=== PATIENT | female | born 1990 | race Caucasian/White ===

== ENCOUNTER 2016-11-19 15:01 | Emergency (ER) | payer OTHER ==
[~2016-11-19 15:01] MED LIST: ACET50TA PO; ANUS2.5C2 PR; CALCTAB22 OR; COLA50CA3 PO; IBUP80TA PO; PRENTAB8 PO; ZANTTAB9 PO
[2016-11-19 15:47] LABS: CONTROL LINE UCG INT CTR LINE PRESENT
[2016-11-19] MEDS ORDERED: KETOROLAC 30 MG/ML VIAL (J1885) As Ordered ONE (16:28)
[2016-11-19 16:57] LABS: ALBUMIN 4.1 GM/DL (3.2-5.2); ALBUMIN/GLOBULIN RATIO 1.41 (1.00-1.93); ALKALINE PHOSPHATASE 67 U/L (45-117); ALT/SGPT 16 U/L (12-78); ANION GAP 7 MEQ/L (8-16); AST/SGOT 14 U/L (15-37); BILIRUBIN,TOTAL 0.2 MG/DL (0.2-1.0); BLOOD UREA NITROGEN 11 MG/DL (7-18); CALCIUM LEVEL 8.5 MG/DL (8.5-10.1); CARBON DIOXIDE LEVEL 28 MEQ/L (21-32); CHLORIDE LEVEL 108 MEQ/L (98-107); CREATININE FOR GFR 0.73 MG/DL (0.55-1.02); GLOMERULAR FILTRATION RATE > 60.0 (>60); GLUCOSE, FASTING 107 MG/DL (70-105); SODIUM LEVEL 143 MEQ/L (136-145)
[2016-11-19 17:39] LABS: BASO # 0.1 K/mm3 (0.0-0.2); BASO % 1.4 % (0.0-1.0); EOS # 0.2 K/mm3 (0.0-0.50); EOS % 2.4 % (0.0-3.0); LARGE UNSTAINED CELL # 0.2 K/mm3 (0.0-0.4); LARGE UNSTAINED CELL % 2.3 % (0.0-4.0); LYMPH # 1.8 K/mm3 (1.5-6.5); LYMPH % 25.8 % (24.0-44.0); MEAN CORPUSCULAR HEMOGLOBIN 30.1 pg (27.0-33.0); MEAN CORPUSCULAR HGB CONC 34.5 g/dl (32.0-36.5); MEAN CORPUSCULAR VOLUME 87.4 fl (80.0-96.0); MONO # 0.4 K/mm3 (0.0-0.8); MONO % 6.7 % (0.0-5.0); NEUTROPHILS # 3.9 K/mm3 (1.8-7.7); NEUTROPHILS % 61.3 % (36.0-66.0); PLATELET COUNT, AUTOMATED 248 k/mm3 (150-450); RED CELL DISTRIBUTION WIDTH 12.8 % (11.5-14.5); WHITE BLOOD COUNT 6.4 K/mm3 (4.0-10.0)
--- NOTE | 2016-11-19 17:49 | EDDOCDS ---
Physician Documentation [facility] Name: Paradise Ridley Age: 26 yrs Sex: Female : 1990 Arrival Date: 11/19/2016 Time: 15:01 Bed Private MD: Meño Thomas Disposition: 11/19/16 17:37 Discharged to Home/Self Care. Impression: Other ovarian cysts. - Condition is Stable. - Discharge Instructions: Ovarian Cyst, [id number]. - Prescriptions for etodolac 200 mg Oral Capsule - take 1 capsule by ORAL route 3 times per day; 30 capsule. - Medication Reconciliation, Local Pharmacy Hours, Work Release Form - 2 day form. - Follow up: Ifrah Riddle MD; When: Call to arrange an appointment; Reason: Further diagnostic work-up, Recheck today's complaints, Continuance of care. - Problem is new. - Symptoms are unchanged. Historical: - Allergies: tramadol (Nausea); - Home Meds: 1. amitriptyline 75 mg Oral tab 1 tab nightly 2. baclofen 20mg three times a day 3. bupropion HCl 150 mg Oral TbER 1 tab 2 times per day 4. Effexor Oral 75 mg daily 5. Neurontin 600 mg Oral tab 1 tab 3 times per day 6. Seroquel 100 mg Oral tab 7. Macrobid 100 mg Oral cap every 12 hours - PMHx: Anxiety; Arthritis; DDD; Depression; Frequent UTI; Hypertension; restless leg syndrome; Sciatica; - PSHx: none; - Social history: Smoking status: Patient uses tobacco products, heavy tobacco smoker. No barriers to communication noted, The patient speaks fluent Frisian. - : The pt / caregiver states he / she is not on anticoagulants. Home medication list is obtained from the patient. - Exposure Risk Screening:: None identified. 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 9 in. (175.26 cm) (R); 17:33 BP 127 / 63; Pulse 83; Resp 18; Temp 98.6(TE); Pulse Ox 97% on R/A; Pain 8/10; ar3 15:02 Body Mass Index 23.63 (72.57 kg, 175.26 cm) dd6 MDM: 15:29 UA Ordered. EDMS 15:29 Urine Test-In Lab Ordered. EDMS 15:29 Urine Culture Ordered. EDMS 16:14 UA Reviewed. btw 16:14 Urine Test-In Lab Reviewed. btw 16:22 ketorolac 30 mg IM once ordered. btw 16:23 CBC with Diff Ordered. EDMS 16:23 Complete Comphrensive Metabolic Ordered. EDMS 16:24 -US Pelvic Non-Ob Complete Ordered. EDMS 16:24 DUPLEX SCAN LIMITED (DOPPLER)+US Ordered. EDMS 16:57 Transvaginal NON- US Ordered. EDMS 17:36 Complete Comphrensive Metabolic Reviewed. btw Administered Medications: 16:32 Drug: ketorolac 30 mg [ketorolac 30 mg/mL (1 mL) injection solution (1 mL)] Route: IM; jjr Site: left deltoid; Signatures: Dispatcher MedHost Dot Beatty RN RN jjr Nayeli Zuniga RN RN rs3 Erik Gregory PA PA btw MTDD
--- NOTE | 2016-11-19 17:49 | EDDOCDS ---
Nurse's Notes [facility] Name: Paradise Ridley Age: 26 yrs Sex: Female : 1990 Arrival Date: 11/19/2016 Time: 15:01 Bed PR Private MD: Meño Thomas Diagnosis: Other ovarian cysts Presentation: 11/19 15:17 Presenting complaint: Patient states: Was diagnosed with kidney infection on Sunday. rs3 taking Macrobid. still has lower back pain and blood in urine. Adult Sepsis Screening: The patient does not have new or worsening altered mentation. Patient's respiratory rate is less than 22. Systolic blood pressure is greater than 100. Patient has a qSOFA score of 0- Negative Sepsis Screen. Suicide/Homicide risk assessment- the patient denies having any suicidal and/or homicidal ideations and does not present with any other emotional, behavioral or mental health complaints. Status: Patient is not a financial services intern or dependent. Transition of care: patient was not received from another setting of care. 15:17 Acuity: CALLY Level 4 rs3 15:17 Method Of Arrival: Walkin/Carried/Asstd rs3 Triage Assessment: 15:21 General: Appears in no apparent distress. Pain: Location: lumbar area. Pt Declines HIV rs3 testing. 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 amitriptyline 75 mg Oral tab 1 tab nightly 2. baclofen 20mg three times a day 3. bupropion HCl 150 mg Oral TbER 1 tab 2 times per day 4. Effexor Oral 75 mg daily 5. Neurontin 600 mg Oral tab 1 tab 3 times per day 6. Seroquel 100 mg Oral tab 7. Macrobid 100 mg Oral cap every 12 hours - PMHx: Anxiety; Arthritis; DDD; Depression; Frequent UTI; Hypertension; restless leg syndrome; Sciatica; - PSHx: none; - Social history: Smoking status: Patient uses tobacco products, heavy tobacco smoker. No barriers to communication noted, The patient speaks fluent Sami. - : The pt / caregiver states he / she is not on anticoagulants. Home medication list is obtained from the patient. - Exposure Risk Screening:: None identified. Screenin:32 Screening information is obtained from the patient. Fall risk: No risks identified. jjr Assistance ADL's: requires no assistance with activities of daily living. Abuse/DV Screen: The patient / caregiver reports he/she is: not in a situation that causes fear, pain or injury. Nutritional screening: No deficits noted. Advance Directives: There is no active DNR order. home support is adequate. Assessment: 16:32 General: Appears in no apparent distress, well nourished, well groomed, Behavior is jjr appropriate for age. Pain: Location: right femoral area, left femoral area and suprapubic area. : Reports hematuria. 17:47 General: Appears in no apparent distress, reports GOSS. jjr Vital Signs: 15:02 BP 111 / 76; Pulse 87; Resp 18 S; Temp 97.4(O); Pulse Ox 99% on R/A; Weight 72.57 kg dd6 (R); Height 5 ft. 9 in. (175.26 cm) (R); 17:33 BP 127 / 63; Pulse 83; Resp 18; Temp 98.6(TE); Pulse Ox 97% on R/A; Pain 8/10; ar3 15:02 Body Mass Index 23.63 (72.57 kg, 175.26 cm) dd6 Vitals: 15:02 Log In Time: November 19, 2016 at 15:00. dd6 ED Course: 15:02 Patient visited by Brian Cuellar PCA. dd6 15:02 Meño Thomas is Private Physician. dd6 15:02 Patient moved to Waiting dd6 15:03 Patient moved to Pre RCE dd6 15:20 Triage Initiated rs3 15:30 Urine Culture Sent. ar3 15:30 Urine Test-In Lab Sent. ar3 15:30 UA Sent. ar3 16:05 Patient moved to Triage 2 ar3 16:13 Erik Gregory PA is PHCP. btw 16:13 Chelsie Crawford MD is Attending Physician. btw 16:13 Patient visited by Erik Gregory PA. btw 16:27 Complete Comphrensive Metabolic Sent. ar3 16:27 CBC with Diff Sent. ar3 16:30 Patient moved to Ultrasound en 16:31 Patient moved to TR1 kc3 16:32 The patient / caregiver is instructed regarding the plan of care and ED course. jjr 16:33 Patient visited by Dot Gillis RN. jjr 17:31 Patient moved to ar3 17:33 Patient visited by Nicki Clayton PCA. ar3 17:36 Ifrah Riddle MD is Referral Physician. btw 17:48 No IV's were initiated during this patient's visit. No procedures done that require jjr assistance. Administered Medications: 16:32 Drug: ketorolac 30 mg [ketorolac 30 mg/mL (1 mL) injection solution (1 mL)] Route: IM; jjr Site: left deltoid; Order Results: Lab Order: UA; SPEC'M 11/19/16 15:30 Test: APPEARANCE, URINE; Value: CLEAR; Range: CLEAR; Status: F Test: COLOR, URINE; Value: YELLOW; Range: YELLOW; Status: F Test: PH,URINE; Value: 6.0; Range: 5.0-9.0; Units: UNITS; Status: F Test: SPECIFIC GRAVITY URINE AUTO; Value: 1.013; Range: 1.002-1.035; Status: F Test: PROTEIN, URINE AUTO; Value: NEGATIVE; Range: NEGATIVE; Units: mg/dL; Status: F Test: GLUCOSE, URINE (UA) AUTO; Value: NEGATIVE; Range: NEGATIVE; Units: mg/dL; Status: F Test: KETONE, URINE AUTO; Value: NEGATIVE; Range: NEGATIVE; Units: mg/dL; Status: F Test: UROBILINOGEN, URINE AUTO; Value: 0.2; Range: 0.0-2.0; Units: mg/dL; Status: F Test: BILIRUBIN, URINE AUTO; Value: NEGATIVE; Range: NEGATIVE; Status: F Test: NITRITE, URINE AUTO; Value: NEGATIVE; Range: NEGATIVE; Status: F Test: LEUKOCYTE ESTERASE, URINE AUTO; Value: NEGATIVE; Range: NEGATIVE; Status: F Test: BLOOD, URINE BLOOD; Value: 3+; Range: NEGATIVE; Abnormal: Above high normal; Status: F Test: WBC, URINE AUTO; Value: 7; Range: 0-3; Abnormal: Above high normal; Units: /HPF; Status: F Test: RBC, URINE AUTO; Value: 183; Range: 0-3; Units: /HPF; Status: F Test: BACTERIA, URINE AUTO; Value: 1+; Range: NEGATIVE; Abnormal: Above high normal; Status: F Test: SQUAMOUS EPITHELIAL CELL UR AU; Value: 7; Range: 0-6; Units: /HPF; Status: F Test: MUCUS, URINE; Value: SMALL; Range: NEGATIVE; Status: F Test: HYALINE CAST, URINE AUTO; Value: 0; Range: 0-1; Units: /LPF; Status: F Lab Order: Urine Test-In Lab; SPEC'M 11/19/16 15:30 Test: URINE PREG TEST; Value: NEGATIVE; Range: NEGATIVE; Status: F Lab Order: CBC with Diff; SPEC'M 11/19/16 16:26 Test: WHITE BLOOD COUNT; Value: 6.4; Range: 4.0-10.0; Units: K/mm3; Status: F Test: RED BLOOD COUNT; Value: 4.15; Range: 4.00-5.40; Units: M/mm3; Status: F Test: HEMOGLOBIN; Value: 12.5; Range: 12.0-16.0; Units: g/dl; Status: F Test: HEMATOCRIT; Value: 36.2; Range: 36.0-47.0; Units: %; Status: F Test: MEAN CORPUSCULAR VOLUME; Value: 87.4; Range: 80.0-96.0; Units: fl; Status: F Test: MEAN CORPUSCULAR HEMOGLOBIN; Value: 30.1; Range: 27.0-33.0; Units: pg; Status: F Test: MEAN CORPUSCULAR HGB CONC; Value: 34.5; Range: 32.0-36.5; Units: g/dl; Status: F Test: RED CELL DISTRIBUTION WIDTH; Value: 12.8; Range: 11.5-14.5; Units: %; Status: F Test: PLATELET COUNT, AUTOMATED; Value: 248; Range: 150-450; Units: k/mm3; Status: F Test: NEUTROPHILS %; Value: 61.3; Range: 36.0-66.0; Units: %; Status: F Test: LYMPH %; Value: 25.8; Range: 24.0-44.0; Units: %; Status: F Test: MONO %; Value: 6.7; Range: 0.0-5.0; Abnormal: Above high normal; Units: %; Status: F Test: EOS %; Value: 2.4; Range: 0.0-3.0; Units: %; Status: F Test: BASO %; Value: 1.4; Range: 0.0-1.0; Abnormal: Above high normal; Units: %; Status: F Test: LARGE UNSTAINED CELL %; Value: 2.3; Range: 0.0-4.0; Units: %; Status: F Test: NEUTROPHILS #; Value: 3.9; Range: 1.8-7.7; Units: K/mm3; Status: F Test: LYMPH #; Value: 1.8; Range: 1.5-6.5; Units: K/mm3; Status: F Test: MONO #; Value: 0.4; Range: 0.0-0.8; Units: K/mm3; Status: F Test: EOS #; Value: 0.2; Range: 0.0-0.50; Units: K/mm3; Status: F Test: BASO #; Value: 0.1; Range: 0.0-0.2; Units: K/mm3; Status: F Test: LARGE UNSTAINED CELL #; Value: 0.2; Range: 0.0-0.4; Units: K/mm3; Status: F Lab Order: Complete Comphrensive Metabolic; SPEC'M 11/19/16 16:26 Test: GLUCOSE, FASTING; Value: 107; Range: 70-105; Abnormal: Above high normal; Units: MG/DL; Status: F Test: BLOOD UREA NITROGEN; Value: 11; Range: 7-18; Units: MG/DL; Status: F Test: CREATININE FOR GFR; Value: 0.73; Range: 0.55-1.02; Units: MG/DL; Status: F Test: GLOMERULAR FILTRATION RATE; Value: > 60.0; Range: >60; Status: F Test: SODIUM LEVEL; Value: 143; Range: 136-145; Units: MEQ/L; Status: F Test: POTASSIUM SERUM; Value: 4.0; Range: 3.5-5.1; Units: MEQ/L; Status: F Test: CHLORIDE LEVEL; Value: 108; Range: 98-107; Abnormal: Above high normal; Units: MEQ/L; Status: F Test: CARBON DIOXIDE LEVEL; Value: 28; Range: 21-32; Units: MEQ/L; Status: F Test: ANION GAP; Value: 7; Range: 8-16; Abnormal: Below low normal; Units: MEQ/L; Status: F Test: CALCIUM LEVEL; Value: 8.5; Range: 8.5-10.1; Units: MG/DL; Status: F Test: AST/SGOT; Value: 14; Range: 15-37; Abnormal: Below low normal; Units: U/L; Status: F Test: ALT/SGPT; Value: 16; Range: 12-78; Units: U/L; Status: F Test: ALKALINE PHOSPHATASE; Value: 67; Range: 45-117; Units: U/L; Status: F Test: BILIRUBIN,TOTAL; Value: 0.2; Range: 0.2-1.0; Units: MG/DL; Status: F Test: TOTAL PROTEIN; Value: 7.0; Range: 6.4-8.2; Units: GM/DL; Status: F Test: ALBUMIN; Value: 4.1; Range: 3.2-5.2; Units: GM/DL; Status: F Test: ALBUMIN/GLOBULIN RATIO; Value: 1.41; Range: 1.00-1.93; Status: F Test Note: ; Units are mL/min/1.73 m2 Chronic Kidney Disease Staging per NKF: Stage I & II GFR >=60 Normal to Mildly Decreased Stage III GFR 30-59 Moderately Decreased Stage IV GFR 15-29 Severely Decreased Stage V GFR <15 Very Little GFR Left ESRD GFR <15 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 btw 17:48 Discharge Assessment: patient administered narcotics - no. The following High Risk jjr Discharge criteria are identified: None. Discharged to home ambulatory. Condition: stable. Discharge instructions given to patient, Instructed on discharge instructions, follow up and referral plans. medication usage, Demonstrated understanding of instructions, medications, Prescriptions given X 1, Work note provided to patient. Ultrasound Study completed. Property sent home with patient. 17:48 Patient left the ED. jjr Signatures: Dot Gillis RN RN lizzetter Brian Cuellar, BUTTON PUNCHER BUTTON PUNCHER dd6 Nayeli Zuniga RN RN rs3 Nicki Clayton, BUTTON PUNCHER BUTTON PUNCHER ar3 Erik Gregory, JANETH PA btw Doris Song Kelsi,RN RN kc3 MTDD
--- NOTE | 2016-11-20 11:24 | REP ---
Pelvic ultrasound, transabdominal, endovaginal and Doppler assessment: Balloon the uterus is anteverted and anteflexed and normal size measuring 8.1 x 4.6 x 3.4 cm. The endometrium is not thickened measuring 3.8 mm. There is an IUD in the endometrial canal. The ovaries are normal size. The right ovary measures 3.6 x 2.2 x 2.3 cm. Left ovary measures 3.2 x 2.4 x 2.9 cm. There is no dominant ovarian follicle or mass. There is a small left ovarian follicle measuring 1.3 cm. There is vascular flow in both ovaries. The Doppler resistive index of the intraparenchymal arteries on the right is 0.53 and on the left 0.40. There is no free pelvic fluid. Impression: There is vascular flow in both ovaries. There is a 1.3 cm left ovarian follicle. No free fluid. There is an IUD in the endometrial canal. Signed by Isael Reilly MD 11/19/2016 05:03 P
--- NOTE | 2016-11-21 18:49 | EDDOCDS ---
Physician Documentation [facility] Name: Paradise Ridley Age: 26 yrs Sex: Female : 1990 Arrival Date: 11/19/2016 Time: 15:01 Bed Private MD: Meño Thomas Disposition: 11/19/16 17:37 Discharged to Home/Self Care. Impression: Other ovarian cysts. - Condition is Stable. - Discharge Instructions: Ovarian Cyst, [id number]. - Prescriptions for etodolac 200 mg Oral Capsule - take 1 capsule by ORAL route 3 times per day; 30 capsule. - Medication Reconciliation, Local Pharmacy Hours, Work Release Form - 2 day form. - Follow up: Ifrah Riddle MD; When: Call to arrange an appointment; Reason: Further diagnostic work-up, Recheck today's complaints, Continuance of care. - Problem is new. - Symptoms are unchanged. Historical: - Allergies: tramadol (Nausea); - Home Meds: 1. amitriptyline 75 mg Oral tab 1 tab nightly 2. baclofen 20mg three times a day 3. bupropion HCl 150 mg Oral TbER 1 tab 2 times per day 4. Effexor Oral 75 mg daily 5. Neurontin 600 mg Oral tab 1 tab 3 times per day 6. Seroquel 100 mg Oral tab 7. Macrobid 100 mg Oral cap every 12 hours - PMHx: Anxiety; Arthritis; DDD; Depression; Frequent UTI; Hypertension; restless leg syndrome; Sciatica; - PSHx: none; - Social history: Smoking status: Patient uses tobacco products, heavy tobacco smoker. No barriers to communication noted, The patient speaks fluent Hungarian. - : The pt / caregiver states he / she is not on anticoagulants. Home medication list is obtained from the patient. - Exposure Risk Screening:: None identified. 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 9 in. (175.26 cm) (R); 17:33 BP 127 / 63; Pulse 83; Resp 18; Temp 98.6(TE); Pulse Ox 97% on R/A; Pain 8/10; ar3 15:02 Body Mass Index 23.63 (72.57 kg, 175.26 cm) dd6 MDM: 15:29 UA Ordered. EDMS 15:29 Urine Test-In Lab Ordered. EDMS 15:29 Urine Culture Ordered. EDMS 16:14 UA Reviewed. btw 16:14 Urine Test-In Lab Reviewed. btw 16:22 ketorolac 30 mg IM once ordered. btw 16:23 CBC with Diff Ordered. EDMS 16:23 Complete Comphrensive Metabolic Ordered. EDMS 16:24 -US Pelvic Non-Ob Complete Ordered. EDMS 16:24 DUPLEX SCAN LIMITED (DOPPLER)+US Ordered. EDMS 16:57 Transvaginal NON- US Ordered. EDMS 17:36 Complete Comphrensive Metabolic Reviewed. btw 11/20 11:50 T-Sheet-- Draft Copy was scanned into [employer] and attached to record. gb Administered Medications: 11/19 16:32 Drug: ketorolac 30 mg [ketorolac 30 mg/mL (1 mL) injection solution (1 mL)] Route: IM; jjr Site: left deltoid; Signatures: Dispatcher MedHost EDMS Skyla Rae, Reg Reg gb Dot Gillis RN RN jNayeli Larkin RN RN rs3 Erik Gregory PA PA btw The chart was reviewed and I authenticate all verbal orders and agree with the evaluation and treatment provided.Attachments: 11/20 11:50 T-Sheet-- Draft Copy gb Chart Complete MTDD
--- NOTE | 2016-11-21 18:49 | EDDOCDS ---
Physician Documentation [facility] Name: Paradise Ridley Age: 26 yrs Sex: Female : 1990 Arrival Date: 11/19/2016 Time: 15:01 Bed Private MD: Meño Thomas Disposition: 11/19/16 17:37 Discharged to Home/Self Care. Impression: Other ovarian cysts. - Condition is Stable. - Discharge Instructions: Ovarian Cyst, [id number]. - Prescriptions for etodolac 200 mg Oral Capsule - take 1 capsule by ORAL route 3 times per day; 30 capsule. - Medication Reconciliation, Local Pharmacy Hours, Work Release Form - 2 day form. - Follow up: Ifrah Riddle MD; When: Call to arrange an appointment; Reason: Further diagnostic work-up, Recheck today's complaints, Continuance of care. - Problem is new. - Symptoms are unchanged. Historical: - Allergies: tramadol (Nausea); - Home Meds: 1. amitriptyline 75 mg Oral tab 1 tab nightly 2. baclofen 20mg three times a day 3. bupropion HCl 150 mg Oral TbER 1 tab 2 times per day 4. Effexor Oral 75 mg daily 5. Neurontin 600 mg Oral tab 1 tab 3 times per day 6. Seroquel 100 mg Oral tab 7. Macrobid 100 mg Oral cap every 12 hours - PMHx: Anxiety; Arthritis; DDD; Depression; Frequent UTI; Hypertension; restless leg syndrome; Sciatica; - PSHx: none; - Social history: Smoking status: Patient uses tobacco products, heavy tobacco smoker. No barriers to communication noted, The patient speaks fluent Turkmen. - : The pt / caregiver states he / she is not on anticoagulants. Home medication list is obtained from the patient. - Exposure Risk Screening:: None identified. 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 9 in. (175.26 cm) (R); 17:33 BP 127 / 63; Pulse 83; Resp 18; Temp 98.6(TE); Pulse Ox 97% on R/A; Pain 8/10; ar3 15:02 Body Mass Index 23.63 (72.57 kg, 175.26 cm) dd6 MDM: 15:29 UA Ordered. EDMS 15:29 Urine Test-In Lab Ordered. EDMS 15:29 Urine Culture Ordered. EDMS 16:14 UA Reviewed. btw 16:14 Urine Test-In Lab Reviewed. btw 16:22 ketorolac 30 mg IM once ordered. btw 16:23 CBC with Diff Ordered. EDMS 16:23 Complete Comphrensive Metabolic Ordered. EDMS 16:24 -US Pelvic Non-Ob Complete Ordered. EDMS 16:24 DUPLEX SCAN LIMITED (DOPPLER)+US Ordered. EDMS 16:57 Transvaginal NON- US Ordered. EDMS 17:36 Complete Comphrensive Metabolic Reviewed. btw 11/20 11:50 T-Sheet-- Draft Copy was scanned into Differential and attached to record. gb Administered Medications: 11/19 16:32 Drug: ketorolac 30 mg [ketorolac 30 mg/mL (1 mL) injection solution (1 mL)] Route: IM; jjr Site: left deltoid; Signatures: Dispatcher MedHost EDMS Skyla Rae, Reg Reg gb Dot Gillis RN RN jNayeli Larkin RN RN rs3 Erik Gregory PA PA btw The chart was reviewed and I authenticate all verbal orders and agree with the evaluation and treatment provided.Attachments: 11/20 11:50 T-Sheet-- Draft Copy gb Chart Complete MTDD
--- NOTE | 2016-11-21 18:49 | EDDOCDS ---
Nurse's Notes [facility] Name: Paradise Ridley Age: 26 yrs Sex: Female : 1990 Arrival Date: 11/19/2016 Time: 15:01 Bed PR Private MD: Meño Thomas Diagnosis: Other ovarian cysts Presentation: 11/19 15:17 Presenting complaint: Patient states: Was diagnosed with kidney infection on Sunday. rs3 taking Macrobid. still has lower back pain and blood in urine. Adult Sepsis Screening: The patient does not have new or worsening altered mentation. Patient's respiratory rate is less than 22. Systolic blood pressure is greater than 100. Patient has a qSOFA score of 0- Negative Sepsis Screen. Suicide/Homicide risk assessment- the patient denies having any suicidal and/or homicidal ideations and does not present with any other emotional, behavioral or mental health complaints. 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 Transition of care: patient was not received from another setting of care. 15:17 Acuity: CALLY Level 4 rs3 15:17 Method Of Arrival: Walkin/Carried/Asstd rs3 Triage Assessment: 15:21 General: Appears in no apparent distress. Pain: Location: lumbar area. Pt Declines HIV rs3 testing. 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 amitriptyline 75 mg Oral tab 1 tab nightly 2. baclofen 20mg three times a day 3. bupropion HCl 150 mg Oral TbER 1 tab 2 times per day 4. Effexor Oral 75 mg daily 5. Neurontin 600 mg Oral tab 1 tab 3 times per day 6. Seroquel 100 mg Oral tab 7. Macrobid 100 mg Oral cap every 12 hours - PMHx: Anxiety; Arthritis; DDD; Depression; Frequent UTI; Hypertension; restless leg syndrome; Sciatica; - PSHx: none; - Social history: Smoking status: Patient uses tobacco products, heavy tobacco smoker. No barriers to communication noted, The patient speaks fluent Macedonian. - : The pt / caregiver states he / she is not on anticoagulants. Home medication list is obtained from the patient. - Exposure Risk Screening:: None identified. Screenin:32 Screening information is obtained from the patient. Fall risk: No risks identified. jjr Assistance ADL's: requires no assistance with activities of daily living. Abuse/DV Screen: The patient / caregiver reports he/she is: not in a situation that causes fear, pain or injury. Nutritional screening: No deficits noted. Advance Directives: There is no active DNR order. home support is adequate. Assessment: 16:32 General: Appears in no apparent distress, well nourished, well groomed, Behavior is jjr appropriate for age. Pain: Location: right femoral area, left femoral area and suprapubic area. : Reports hematuria. 17:47 General: Appears in no apparent distress, reports GOSS. jjr Vital Signs: 15:02 BP 111 / 76; Pulse 87; Resp 18 S; Temp 97.4(O); Pulse Ox 99% on R/A; Weight 72.57 kg dd6 (R); Height 5 ft. 9 in. (175.26 cm) (R); 17:33 BP 127 / 63; Pulse 83; Resp 18; Temp 98.6(TE); Pulse Ox 97% on R/A; Pain 8/10; ar3 15:02 Body Mass Index 23.63 (72.57 kg, 175.26 cm) dd6 Vitals: 15:02 Log In Time: November 19, 2016 at 15:00. dd6 ED Course: 15:02 Patient visited by Brian Cuellar PCA. dd6 15:02 Meño Thomas is Private Physician. dd6 15:02 Patient moved to Waiting dd6 15:03 Patient moved to Pre RCE dd6 15:20 Triage Initiated rs3 15:30 Urine Culture Sent. ar3 15:30 Urine Test-In Lab Sent. ar3 15:30 UA Sent. ar3 16:05 Patient moved to Triage 2 ar3 16:13 Erik Gregory PA is PHCP. btw 16:13 Chelsie Crawford MD is Attending Physician. btw 16:13 Patient visited by Erik Gregory PA. btw 16:27 Complete Comphrensive Metabolic Sent. ar3 16:27 CBC with Diff Sent. ar3 16:30 Patient moved to Ultrasound en 16:31 Patient moved to TR1 kc3 16:32 The patient / caregiver is instructed regarding the plan of care and ED course. jjr 16:33 Patient visited by Dot Gillis RN. jjr 17:31 Patient moved to ar3 17:33 Patient visited by Nicki Clayton PCA. ar3 17:36 Ifrah Riddle MD is Referral Physician. btw 17:48 No IV's were initiated during this patient's visit. No procedures done that require jjr assistance. 11/20 11:50 T-Sheet-- Draft Copy was scanned into [employer] and attached to record. gb 11:53 -US Pelvic Non-Ob Complete Returned. EDMS Administered Medications: 11/19 16:32 Drug: ketorolac 30 mg [ketorolac 30 mg/mL (1 mL) injection solution (1 mL)] Route: IM; jjr Site: left deltoid; Order Results: Lab Order: UA; SPEC'M 11/19/16 15:30 Test: APPEARANCE, URINE; Value: CLEAR; Range: CLEAR; Status: F Test: COLOR, URINE; Value: YELLOW; Range: YELLOW; Status: F Test: PH,URINE; Value: 6.0; Range: 5.0-9.0; Units: UNITS; Status: F Test: SPECIFIC GRAVITY URINE AUTO; Value: 1.013; Range: 1.002-1.035; Status: F Test: PROTEIN, URINE AUTO; Value: NEGATIVE; Range: NEGATIVE; Units: mg/dL; Status: F Test: GLUCOSE, URINE (UA) AUTO; Value: NEGATIVE; Range: NEGATIVE; Units: mg/dL; Status: F Test: KETONE, URINE AUTO; Value: NEGATIVE; Range: NEGATIVE; Units: mg/dL; Status: F Test: UROBILINOGEN, URINE AUTO; Value: 0.2; Range: 0.0-2.0; Units: mg/dL; Status: F Test: BILIRUBIN, URINE AUTO; Value: NEGATIVE; Range: NEGATIVE; Status: F Test: NITRITE, URINE AUTO; Value: NEGATIVE; Range: NEGATIVE; Status: F Test: LEUKOCYTE ESTERASE, URINE AUTO; Value: NEGATIVE; Range: NEGATIVE; Status: F Test: BLOOD, URINE BLOOD; Value: 3+; Range: NEGATIVE; Abnormal: Above high normal; Status: F Test: WBC, URINE AUTO; Value: 7; Range: 0-3; Abnormal: Above high normal; Units: /HPF; Status: F Test: RBC, URINE AUTO; Value: 183; Range: 0-3; Units: /HPF; Status: F Test: BACTERIA, URINE AUTO; Value: 1+; Range: NEGATIVE; Abnormal: Above high normal; Status: F Test: SQUAMOUS EPITHELIAL CELL UR AU; Value: 7; Range: 0-6; Units: /HPF; Status: F Test: MUCUS, URINE; Value: SMALL; Range: NEGATIVE; Status: F Test: HYALINE CAST, URINE AUTO; Value: 0; Range: 0-1; Units: /LPF; Status: F Lab Order: Urine Test-In Lab; SPEC'M 11/19/16 15:30 Test: URINE PREG TEST; Value: NEGATIVE; Range: NEGATIVE; Status: F Lab Order: Urine Culture; SPEC'M 11/19/16 15:30 Test: URINE CULTURE; Value: <EXTERNAL COMMENT eCWMed> FULL REPORT IN LAB NOTES (eCW and Medent).; Status: F Test: URINE CULTURE; Value: URINE CULTURE RESULT NO GROWTH; Status: F Lab Order: CBC with Diff; SPEC'M 11/19/16 16:26 Test: WHITE BLOOD COUNT; Value: 6.4; Range: 4.0-10.0; Units: K/mm3; Status: F Test: RED BLOOD COUNT; Value: 4.15; Range: 4.00-5.40; Units: M/mm3; Status: F Test: HEMOGLOBIN; Value: 12.5; Range: 12.0-16.0; Units: g/dl; Status: F Test: HEMATOCRIT; Value: 36.2; Range: 36.0-47.0; Units: %; Status: F Test: MEAN CORPUSCULAR VOLUME; Value: 87.4; Range: 80.0-96.0; Units: fl; Status: F Test: MEAN CORPUSCULAR HEMOGLOBIN; Value: 30.1; Range: 27.0-33.0; Units: pg; Status: F Test: MEAN CORPUSCULAR HGB CONC; Value: 34.5; Range: 32.0-36.5; Units: g/dl; Status: F Test: RED CELL DISTRIBUTION WIDTH; Value: 12.8; Range: 11.5-14.5; Units: %; Status: F Test: PLATELET COUNT, AUTOMATED; Value: 248; Range: 150-450; Units: k/mm3; Status: F Test: NEUTROPHILS %; Value: 61.3; Range: 36.0-66.0; Units: %; Status: F Test: LYMPH %; Value: 25.8; Range: 24.0-44.0; Units: %; Status: F Test: MONO %; Value: 6.7; Range: 0.0-5.0; Abnormal: Above high normal; Units: %; Status: F Test: EOS %; Value: 2.4; Range: 0.0-3.0; Units: %; Status: F Test: BASO %; Value: 1.4; Range: 0.0-1.0; Abnormal: Above high normal; Units: %; Status: F Test: LARGE UNSTAINED CELL %; Value: 2.3; Range: 0.0-4.0; Units: %; Status: F Test: NEUTROPHILS #; Value: 3.9; Range: 1.8-7.7; Units: K/mm3; Status: F Test: LYMPH #; Value: 1.8; Range: 1.5-6.5; Units: K/mm3; Status: F Test: MONO #; Value: 0.4; Range: 0.0-0.8; Units: K/mm3; Status: F Test: EOS #; Value: 0.2; Range: 0.0-0.50; Units: K/mm3; Status: F Test: BASO #; Value: 0.1; Range: 0.0-0.2; Units: K/mm3; Status: F Test: LARGE UNSTAINED CELL #; Value: 0.2; Range: 0.0-0.4; Units: K/mm3; Status: F Lab Order: Complete Comphrensive Metabolic; SPEC'M 11/19/16 16:26 Test: GLUCOSE, FASTING; Value: 107; Range: 70-105; Abnormal: Above high normal; Units: MG/DL; Status: F Test: BLOOD UREA NITROGEN; Value: 11; Range: 7-18; Units: MG/DL; Status: F Test: CREATININE FOR GFR; Value: 0.73; Range: 0.55-1.02; Units: MG/DL; Status: F Test: GLOMERULAR FILTRATION RATE; Value: > 60.0; Range: >60; Status: F Test: SODIUM LEVEL; Value: 143; Range: 136-145; Units: MEQ/L; Status: F Test: POTASSIUM SERUM; Value: 4.0; Range: 3.5-5.1; Units: MEQ/L; Status: F Test: CHLORIDE LEVEL; Value: 108; Range: 98-107; Abnormal: Above high normal; Units: MEQ/L; Status: F Test: CARBON DIOXIDE LEVEL; Value: 28; Range: 21-32; Units: MEQ/L; Status: F Test: ANION GAP; Value: 7; Range: 8-16; Abnormal: Below low normal; Units: MEQ/L; Status: F Test: CALCIUM LEVEL; Value: 8.5; Range: 8.5-10.1; Units: MG/DL; Status: F Test: AST/SGOT; Value: 14; Range: 15-37; Abnormal: Below low normal; Units: U/L; Status: F Test: ALT/SGPT; Value: 16; Range: 12-78; Units: U/L; Status: F Test: ALKALINE PHOSPHATASE; Value: 67; Range: 45-117; Units: U/L; Status: F Test: BILIRUBIN,TOTAL; Value: 0.2; Range: 0.2-1.0; Units: MG/DL; Status: F Test: TOTAL PROTEIN; Value: 7.0; Range: 6.4-8.2; Units: GM/DL; Status: F Test: ALBUMIN; Value: 4.1; Range: 3.2-5.2; Units: GM/DL; Status: F Test: ALBUMIN/GLOBULIN RATIO; Value: 1.41; Range: 1.00-1.93; Status: F Test Note: ; Units are mL/min/1.73 m2 Chronic Kidney Disease Staging per NKF: Stage I & II GFR >=60 Normal to Mildly Decreased Stage III GFR 30-59 Moderately Decreased Stage IV GFR 15-29 Severely Decreased Stage V GFR <15 Very Little GFR Left ESRD GFR <15 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 There is an IUD in the; endometrial canal.; ; The ovaries are normal size.; ; ; The right ovary measures 3.6 x 2.2 x 2.3 cm.; Left ovary measures 3.2 x 2.4 x 2.9 cm.; ; There is no dominant ovarian follicle or mass. There is a small left ovarian; follicle measuring 1.3 cm.; ; There is vascular flow in both ovaries. The Doppler resistive index of the; intraparenchymal arteries on the right is 0.53 and on the left 0.40.; ; There is no free pelvic fluid.; ; Impression:; ; There is vascular flow in both ovaries.; ; There is a 1.3 cm left ovarian follicle.; ; No free fluid.; ; There is an IUD in the endometrial canal.; ; ; Signed by; Isael Reilly MD 11/19/2016 05:03 P; Outcome: 17:37 Discharge ordered by Provider. btw 17:48 Discharge Assessment: patient administered narcotics - no. The following High Risk jjr Discharge criteria are identified: None. Discharged to home ambulatory. Condition: stable. Discharge instructions given to patient, Instructed on discharge instructions, follow up and referral plans. medication usage, Demonstrated understanding of instructions, medications, Prescriptions given X 1, Work note provided to patient. Ultrasound Study completed. Property sent home with patient. 17:48 Patient left the ED. jjr Signatures: Dispatcher [employer] EDMS Skyla Rae, Reg Reg Dot Eaton, RN RN jjr Brian Cuellar, UNDERWRITING INTERN UNDERWRITING INTERN dd6 Nayeli Zuniga RN RN rs3 Nicki Clayton, UNDERWRITING INTERN UNDERWRITING INTERN ar3 Erik Gregory PA PA btw Doris Song Kelsi,RN RN kc3 Chart Complete MTDD
== END 2016-11-19 17:48 | disposition home or self-care (01) ==
LOC: M ED 15:01
DX: N83.02 Follicular cyst of left ovary (principal); R31.9 Hematuria, unspecified; N39.0 Urinary tract infection, site not specified; I10 Essential (primary) hypertension; F41.9 Anxiety disorder, unspecified; F32.9 Major depressive disorder, single episode, unspecified; M19.90 Unspecified osteoarthritis, unspecified site; G25.81 Restless legs syndrome; M51.9 Unspecified thoracic, thoracolumbar and lumbosacral intervertebral disc disorder; M54.30 Sciatica, unspecified side; Z79.899 Other long term (current) drug therapy; Z79.2 Long term (current) use of antibiotics; Z88.5 Allergy status to narcotic agent; F17.210 Nicotine dependence, cigarettes, uncomplicated
CPT/HCPCS: 76830; 76856; 80053; 81001; 84703; 85025; 87086; 93976; 96372; 99284; J1885

== ENCOUNTER → 2017-04-03 | Outpatient (CLI) | payer MEDICAID, OTHER ==
--- NOTE | 2017-04-03 17:38 | REP ---
LEFT KNEE, FIVE VIEWS: HISTORY: Pain. There is no acute fracture or dislocation. The joint spaces are normal in appearance. IMPRESSION: There is no acute fracture or dislocation. Signed by Zaheer Arguello MD 04/04/2017 08:14 A
== END ==
LOC: M LAB 15:20
PROVIDERS: ATTEND Physician Assistant
DX: M25.562 Pain in left knee (principal)

== ENCOUNTER 2018-06-10 04:30 | Emergency (ER) | payer SELFPAY, MEDICAID, OTHER ==
[2018-06-10] MEDS: GABAPENTIN 300 MG CAP PO (06:30)
[2018-06-10] MEDS ORDERED: METHOCARBAMOL 500 MG TAB PO (06:30)
[2018-06-10] MEDS: NORCO, ANEXSIA 5/325MG TABLET (HYDROcodone/ACETAMINOPHEN) PO (06:30)
== END 2018-06-10 06:43 | disposition home or self-care (01) ==
LOC: M ED 04:30
DX: G25.81 Restless legs syndrome (principal); F33.9 Major depressive disorder, recurrent, unspecified; K21.9 Gastro-esophageal reflux disease without esophagitis; Z91.040 Latex allergy status; Z91.018 Allergy to other foods; Z79.899 Other long term (current) drug therapy
CPT/HCPCS: 99282

== ENCOUNTER → 2020-12-10 | Outpatient (CLI) | payer MEDICAID ==
[~2020-12-10] MED LIST changes: -ACET50TA PO; +BUPR150T5; +GABA600T4; +HYDR-3713; +HYDR-3715 PO; +MAPA500T17 PO; +MELO15TA28; +NEUR300C PO; +QUET100T2; +RIZA5TAB; +TOPI25TA10; +VENL37.52
== END ==
LOC: M OUTALCOH 08:25
PROVIDERS: ATTEND Psychiatry & Neurology Psychiatry
DX: F11.20 Opioid dependence, uncomplicated (principal); F17.200 Nicotine dependence, unspecified, uncomplicated

== ENCOUNTER 2020-12-17 12:56 | Outpatient (RCR) | payer MEDICAID | END 2020-12-19 | LOC: M OUTALCOH 12:56 | PROVIDERS: ATTEND Psychiatry & Neurology Psychiatry | DX: F11.20 Opioid dependence, uncomplicated (principal); F17.200 Nicotine dependence, unspecified, uncomplicated ==

== ENCOUNTER 2021-01-18 15:00 | Outpatient (RCR) | payer MEDICAID | END 2021-01-19 | LOC: M OUTALCOH 15:00 | PROVIDERS: ATTEND Psychiatry & Neurology Psychiatry | DX: F11.20 Opioid dependence, uncomplicated (principal); F17.200 Nicotine dependence, unspecified, uncomplicated ==

== ENCOUNTER → 2021-02-04 | Outpatient (REF) | payer MEDICAID ==
[2021-02-04 17:31] LABS: BASO # 0.1 10^3/uL (0.0-0.2); BASO % 0.7 % (0.0-1.0); EOS # 0.3 10^3/uL (0.0-0.5); EOS % 4.6 % (0.0-3.0); HEMATOCRIT 41.3 % (36.0-47.0); HEMOGLOBIN 13.7 g/dl (12.0-15.5); LYMPH # 1.8 10^3/uL (1.5-5.0); LYMPH % 27.2 % (24.0-44.0); MEAN CORPUSCULAR HGB CONC 33.2 g/dl (32.0-36.5); MEAN CORPUSCULAR VOLUME 90.6 fl (80.0-96.0); MONO # 0.8 10^3/uL (0.0-0.8); MONO % 11.8 % (2.0-8.0); NEUTROPHILS # 3.7 10^3/uL (1.5-8.5); NEUTROPHILS % 55.6 % (36.0-66.0); PLATELET COUNT, AUTOMATED 214 10^3/uL (150-450); RED BLOOD COUNT 4.56 10^6/uL (4.00-5.40); WHITE BLOOD COUNT 6.7 10^3/uL (4.0-10.0)
[2021-02-04 18:02] LABS: ALBUMIN 3.8 GM/DL (3.2-5.2); ALT/SGPT 26 U/L (12-78); BILIRUBIN,TOTAL 0.3 MG/DL (0.2-1.0); BLOOD UREA NITROGEN 8 MG/DL (7-18); CALCIUM LEVEL 9.5 MG/DL (8.5-10.1); CARBON DIOXIDE LEVEL 28 MEQ/L (21-32); CHLORIDE LEVEL 103 MEQ/L (98-107); CREATININE FOR GFR 0.56 MG/DL (0.55-1.30); GLOMERULAR FILTRATION RATE > 60.0 (>60); GLUCOSE, FASTING 63 MG/DL (70-100); HCG, SERUM QUANTITATIVE < 1.0 MIU/ML; POTASSIUM SERUM 4.3 MEQ/L (3.5-5.1); SODIUM LEVEL 136 MEQ/L (136-145); THYROID STIMULATING HORMONE 0.821 uIU/ML (0.358-3.740); TOTAL PROTEIN 6.7 GM/DL (6.4-8.2)
[2021-02-07 14:36] LABS: TOTAL 25(OH) VITAMIN D 10.1 NG/ML (30.0-100.0)
[2021-02-07 14:47] LABS: HEPATITIS B SURFACE ANTIGEN NEGATIVE (NEGATIVE)
[2021-02-07 15:14] LABS: HEPATITIS B CORE ANTIBODY IGM NEGATIVE (NEGATIVE); HEPATITIS C VIRUS ABY INDEX 0.1 INDEX (<0.8)
[2021-02-07 15:15] LABS: HIV 1&2 SCREEN CENTAUR NEGATIVE (NEGATIVE)
[2021-02-07 15:16] LABS: HEPATITIS A ANTIBODY IGM NEGATIVE (NEGATIVE)
== END ==
LOC: M PLALAB 16:49
DX: F11.20 Opioid dependence, uncomplicated (principal)

== ENCOUNTER → 2021-02-18 | Outpatient (RCR) | payer MEDICAID | LOC: M OUTALCOH 01-20 13:00 | PROVIDERS: ATTEND Psychiatry & Neurology Psychiatry | DX: F11.20 Opioid dependence, uncomplicated (principal); F17.200 Nicotine dependence, unspecified, uncomplicated ==

== ENCOUNTER 2021-03-18 13:24 | Outpatient (RCR) | payer MEDICAID | END 2021-03-21 | LOC: M OUTALCOH 13:24 | PROVIDERS: ATTEND Psychiatry & Neurology Psychiatry | DX: F11.20 Opioid dependence, uncomplicated (principal); F17.200 Nicotine dependence, unspecified, uncomplicated ==

== ENCOUNTER 2021-04-19 11:00 | Outpatient (RCR) | payer MEDICAID | END 2021-04-20 | LOC: M OUTALCOH 11:00 | PROVIDERS: ATTEND Psychiatry & Neurology Psychiatry | DX: F11.20 Opioid dependence, uncomplicated (principal); F11.10 Opioid abuse, uncomplicated; F17.200 Nicotine dependence, unspecified, uncomplicated ==

== ENCOUNTER 2021-05-20 13:12 | Outpatient (RCR) | payer MEDICAID ==
[~2021-05-20 13:12] MED LIST changes: -RIZA5TAB; +RIZA5TAB2
== END 2021-05-21 ==
LOC: M OUTALCOH 13:12
PROVIDERS: ATTEND Psychiatry & Neurology Psychiatry
DX: F11.20 Opioid dependence, uncomplicated (principal); F17.200 Nicotine dependence, unspecified, uncomplicated

== ENCOUNTER → 2021-06-21 | Outpatient (RCR) | payer MEDICAID | LOC: M OUTALCOH 05-24 16:24 | PROVIDERS: ATTEND Psychiatry & Neurology Psychiatry | DX: F11.20 Opioid dependence, uncomplicated (principal); F17.200 Nicotine dependence, unspecified, uncomplicated ==

== ENCOUNTER 2021-07-19 09:00 | Outpatient (RCR) | payer MEDICAID | END 2021-07-21 | LOC: M OUTALCOH 09:00 | PROVIDERS: ATTEND Psychiatry & Neurology Psychiatry | DX: F11.20 Opioid dependence, uncomplicated (principal); F11.10 Opioid abuse, uncomplicated; F17.200 Nicotine dependence, unspecified, uncomplicated ==

== ENCOUNTER 2021-08-15 13:47 | Outpatient (RCR) | payer MEDICAID | END 2021-08-21 | LOC: M OUTALCOH 13:47 | PROVIDERS: ATTEND Psychiatry & Neurology Psychiatry | DX: F11.20 Opioid dependence, uncomplicated (principal); F17.200 Nicotine dependence, unspecified, uncomplicated ==

== ENCOUNTER 2021-09-12 14:56 | Outpatient (RCR) | payer MEDICAID | END 2021-09-20 | LOC: M OUTALCOH 14:56 | PROVIDERS: ATTEND Psychiatry & Neurology Psychiatry | DX: F11.20 Opioid dependence, uncomplicated (principal); F17.200 Nicotine dependence, unspecified, uncomplicated ==

== ENCOUNTER 2021-10-18 13:00 | Outpatient (RCR) | payer MEDICAID | END 2021-10-21 | LOC: M OUTALCOH 13:00 | PROVIDERS: ATTEND Psychiatry & Neurology Psychiatry | DX: F11.20 Opioid dependence, uncomplicated (principal); F17.200 Nicotine dependence, unspecified, uncomplicated ==

== ENCOUNTER → 2021-11-21 | Outpatient (RCR) | payer MEDICAID | LOC: M OUTALCOH 10-24 14:52 | PROVIDERS: ATTEND Psychiatry & Neurology Psychiatry | DX: F11.20 Opioid dependence, uncomplicated (principal); F17.200 Nicotine dependence, unspecified, uncomplicated ==

== ENCOUNTER 2021-12-12 09:59 | Outpatient (RCR) | payer MEDICAID | END 2021-12-19 | LOC: M OUTALCOH 09:59 | PROVIDERS: ATTEND Psychiatry & Neurology Psychiatry | DX: F11.20 Opioid dependence, uncomplicated (principal); F17.200 Nicotine dependence, unspecified, uncomplicated ==

== ENCOUNTER 2021-12-26 10:28 | Outpatient (RCR) | payer MEDICAID | END 2022-01-19 | LOC: M OUTALCOH 10:28 | PROVIDERS: ATTEND Psychiatry & Neurology Psychiatry | DX: F11.20 Opioid dependence, uncomplicated (principal); F11.10 Opioid abuse, uncomplicated; F17.200 Nicotine dependence, unspecified, uncomplicated ==

== ENCOUNTER → 2023-06-18 | Outpatient (CLI) | payer MEDICAID ==
[~2023-06-18] MED LIST changes: +BUPR-71; -BUPR150T5
[2023-06-18 17:58] LABS: BASO # 0.1 10^3/uL (0.0-0.2); BASO % 1.1 % (0.0-1.0); EOS # 0.3 10^3/uL (0.0-0.5); EOS % 4.4 % (0.0-3.0); HEMATOCRIT 43.6 % (36.0-47.0); HEMOGLOBIN 14.8 g/dl (12.0-15.5); LYMPH # 1.6 10^3/uL (1.5-5.0); LYMPH % 24.5 % (24.0-44.0); MEAN CORPUSCULAR HEMOGLOBIN 31.2 pg (27.0-33.0); MEAN CORPUSCULAR HGB CONC 33.9 g/dl (32.0-36.5); MONO # 0.7 10^3/uL (0.0-0.8); MONO % 10.1 % (2.0-8.0); NEUTROPHILS % 59.6 % (36.0-66.0); PLATELET COUNT, AUTOMATED 221 10^3/uL (150-450); RED BLOOD COUNT 4.74 10^6/uL (4.00-5.40); WHITE BLOOD COUNT 6.6 10^3/uL (4.0-10.0)
[2023-06-18 18:22] LABS: ALBUMIN 4.1 G/DL (3.2-5.2); ALKALINE PHOSPHATASE 73 U/L (46-116); ALT/SGPT 11 U/L (7.0-40); AST/SGOT 10 U/L (<34); BILIRUBIN,TOTAL 0.5 MG/DL (0.3-1.2); BLOOD UREA NITROGEN 6 MG/DL (9-23); CALCIUM LEVEL 9.3 MG/DL (8.5-10.1); CARBON DIOXIDE LEVEL 30 MMOL/L (20-31); CHLORIDE LEVEL 104 MMOL/L (98-107); CHOLESTEROL LEVEL 197 MG/DL (<200); CHOLESTEROL RISK RATIO 2.63 (<5); GLOMERULAR FILTRATION RATE > 60.0 (>60); GLUCOSE, FASTING 87 MG/DL (60-100); HDL CHOLESTEROL 74.7 MG/DL (>40); LDL CHOLESTEROL 104.5 MG/DL (<100); NON-HDL-C 122.3 MG/DL; POTASSIUM SERUM 4.1 MMOL/L (3.5-5.1); SODIUM LEVEL 137 MMOL/L (136-145); THYROID STIMULATING HORMONE 1.179 uIU/ML (0.55-4.78); TOTAL 25(OH) VITAMIN D 14.1 NG/ML (20.0-100.0); TOTAL PROTEIN 7.1 G/DL (5.7-8.2); TRIGLYCERIDES LEVEL 89 MG/DL (<150)
== END ==
LOC: M WUC 14:26
PROVIDERS: ATTEND Physical Therapist
DX: F17.200 Nicotine dependence, unspecified, uncomplicated (principal); E78.5 Hyperlipidemia, unspecified